=== PATIENT | male | born 1985 | race Caucasian/White ===

== ENCOUNTER 2017-04-21 09:57 | Emergency (ER) | payer OTHER ==
[~2017-04-21] VITALS: Ht 177.8 cm; Wt 130.0 kg
[~2017-04-21 09:57] MED LIST: BACT800T5 PO; CEPH-460 PO
[2017-04-21 09:59] VITALS: BP 171/88; PULSE 107; RESP 17; TEMP 98.2; O2SAT 98
[2017-04-21 11:23] VITALS: BP 164/94; PULSE 86; RESP 16; TEMP 98.1; O2SAT 98
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
[2017-04-21] MEDS ORDERED: ROBA750T PO (14:04)
== END 2017-04-21 14:34 | disposition home or self-care (01) ==
LOC: NEPE 09:57
DX: S09.90XA Unspecified injury of head, initial encounter (principal); S00.81XA Abrasion of other part of head, initial encounter; S00.83XA Contusion of other part of head, initial encounter; Y92.410 Unspecified street and highway as the place of occurrence of the external cause; S00.91XA Abrasion of unspecified part of head, initial encounter; V43.52XA Car driver injured in collision with other type car in traffic accident, initial encounter; Y93.89 Activity, other specified; M79.671 Pain in right foot
CPT/HCPCS: 70450; 70486; 73630; 99284